=== PATIENT | female | born 1975 | race Caucasian/White ===

== ENCOUNTER 2017-05-24 09:31 | Emergency (ER) | payer MEDICAID ==
[2017-05-24 09:46] VITALS: TEMP 99.1
--- NOTE | 2017-05-24 10:11 | ED PDOC ---
Arrival/HPI - General Chief Complaint: Flu-like Symptoms Time Seen by Provider: 05/24/17 09:54 Historian: Patient - History of Present Illness Narrative History of Present Illness (Text): 05/24/17 10:11 Javad Mar is a 42 year old male, who has no significant past medical history, who presents to the emergency department complaining of chest pain upon coughing for 2 days. Patient is experiencing associated headaches and sore throat. Patient denies any fever, chills, vomiting, diarrhea, back pain, neck pain, dizziness or any other complaints. Patient notes she has been evaluated by her primary medical physician for constipation lasting several weeks. Time/Duration: < week (2 days) Symptom Onset: Gradual Symptom Course: Unchanged Activities at Onset: Light Context: Home Past Medical History - Provider Review Nursing Documentation Reviewed: Yes - Infectious Disease Hx of Infectious Diseases: None - Psychiatric Hx Substance Use: No - Anesthesia Hx Anesthesia: No Family/Social History - Physician Review Nursing Documentation Reviewed: Yes Family/Social History: Unknown Family HX Smoking Status: Unknown If Ever Smoked Hx Alcohol Use: No Hx Substance Use: No Allergies/Home Meds Allergies/Adverse Reactions: Allergies No Known Allergies Allergy (Verified 05/24/17 09:46) Review of Systems - Physician Review All systems were reviewed & negative as marked: Yes - Review of Systems Constitutional: Normal Eyes: Normal ENT: Sore Throat Respiratory: Cough. absent: SOB Cardiovascular: Chest Pain. absent: Palpitations Gastrointestinal: Constipation Genitourinary Female: Normal. absent: Dysuria, Frequency, Hematuria, Urine Output Changes Musculoskeletal: Normal. absent: Back Pain, Neck Pain Skin: Normal. absent: Rash Neurological: Headache Endocrine: Normal Hemo/Lymphatic: Normal Psychiatric: Normal Physical Exam - Physical Exam Narrative Physical Exam (Text): 05/24/17 10:18 Head: Atraumatic. Normocephalic. Eyes: PERRL. EOMI. Conjunctivae are not pale. ENT: Mucous membranes are moist and intact. Oropharynx is clear and symmetric. Neck: Supple. Full ROM. No JVD. No lymphadenopathy. Cardiovascular: Regular rate. Regular rhythm. No murmurs, rubs, or gallops. Distal pulses are 2+ and symmetric. Pulmonary/Chest: Mildly palpable tenderness upon palpation of the interior chest wall. Abdominal: Soft and non-distended. There is no tenderness. No rebound, guarding, or rigidity. No organomegaly. Good bowel sounds. Back: No CVA tenderness. Extremities: No edema. No cyanosis. No clubbing. Full range of motion in all extremities. No calf tenderness. Skin: Skin is warm and dry. No petechiae. No purpura. Neurological: Alert, awake, and oriented to person, place, time, and situation. Normal speech. Psychiatric: Good eye contact. Normal interaction, affect, and behavior. Vital Signs Reviewed: Yes Vital Signs Temp Pulse Resp BP Pulse Ox 05/24/17 14:50 75 18 105/68 99 05/24/17 09:39 99.1 F 98 H 20 102/55 L 98 Temperature: Afebrile Blood Pressure: Normal Pulse: Regular Respiratory Rate: Normal Appearance: Positive for: Well-Appearing, Non-Toxic, Comfortable Pain Distress: None Mental Status: Positive for: Alert and Oriented X 3 Medical Decision Making ED Course and Treatment: 05/24/17 10:19 Impression: 42 year old female presents to the emergency department complaining of chest pain upon coughing. Differential Diagnosis included but are not limited to: Bronchitis vs. Pneumonia vs. Influenza Plan: -- Chest X-ray -- Motrin -- Influenza A B Stat -- Reassess and disposition Progress Notes: Lungs clear. No fever. No headache. No vomiting or diarrhea. Chest pain is with coughing and palpable. No wheezing noted. Given persistent cough, cxr ordered. 05/24/17 12:43 Chest X-ray reviewed, shows: FINDINGS: LUNGS: No active pulmonary disease. PLEURA: No significant pleural effusion identified. No pneumothorax apparent. CARDIOVASCULAR: Normal. OSSEOUS STRUCTURES: Minimal chronic appearing anterior wedging of mid thoracic segment with minimal multilevel degenerative spondylosis. VISUALIZED UPPER ABDOMEN: Normal. OTHER FINDINGS: None. IMPRESSION: No active disease. Influenza positive. She is afebrile, not tachycardic, not hypotensive. Not septic in ED. NO headache or neck pain. Tolerating po. Patient prescribed tamiflu, instructions given for close follow-up. - Lab Interpretations Lab Results: Lab Results 05/24/17 10:40: Influenza Typ A,B (EIA) Pos for influenza b H - RAD Interpretation Radiology Orders: 05/24/17 10:04 CHEST TWO VIEWS (PA/LAT) [RAD] Stat - Medication Orders Current Medication Orders: Discontinued Medications Ibuprofen (Motrin Tab) 400 mg PO ONCE STA Stop: 05/24/17 10:06 Last Admin: 05/24/17 10:39 Dose: 400 mg MAR Pain/Vitals Document 05/24/17 10:39 REUBEN (Rec: 05/24/17 10:39 REUBEN [facility] [id number]) Pain Reassessment Is This A Pain ReAssessment? No Sleep Is patient sleeping during reassessment? No Presence of Pain Presence of Pain Yes - Scribe Statement The provider has reviewed the documentation as recorded by the Scribnilam Quevedo All medical record entries made by the Glenibnilam were at my direction and personally dictated by me. I have reviewed the chart and agree that the record accurately reflects my personal performance of the history, physical exam, medical decision making, and the department course for this patient. I have also personally directed, reviewed, and agree with the discharge instructions and disposition. Disposition/Present on Arrival - Present on Arrival History of DVT/PE: No History of Uncontrolled Diabetes: No Urinary Catheter: No History of Decub. Ulcer: No History Surgical Site Infection Following: CABG - Mediastinitis, None - Disposition Diagnosis: Influenza, Constipation Disposition: HOME/ ROUTINE Condition: GOOD Discharge Instructions (ExitCare): Constipation, Adult (DC), Flu, Adult (DC) Print Language: LAO Additional Instructions: For any fevers, chest pain, shortness of breath, rash, abdominal pain, nausea or vomiting, dizziness, headaches, persistent or worsening of any symptoms, get rechecked. Follow-up with your physician in 1-2 days. Prescriptions: Polyethylene Glycol 3350 [Miralax] 17 gm PO DAILY #7 ml Oseltamivir Phosphate [Tamiflu] 75 mg PO BID #10 capsule Referrals: Alyssa Chavez DO [Family Provider] - Follow up with primary Forms: [employer] ([place])
--- NOTE | 2017-05-24 12:07 | RAD ---
HISTORY: Cough COMPARISON: No prior. TECHNIQUE: Chest PA and lateral FINDINGS: LUNGS: No active pulmonary disease. PLEURA: No significant pleural effusion identified. No pneumothorax apparent. CARDIOVASCULAR: Normal. OSSEOUS STRUCTURES: Minimal chronic appearing anterior wedging of mid thoracic segment with minimal multilevel degenerative spondylosis. VISUALIZED UPPER ABDOMEN: Normal. OTHER FINDINGS: None. IMPRESSION: No active disease.
[2017-05-24 14:50] VITALS: BP 105/68; PULSE 75; RESP 18; O2SAT 99
--- NOTE | 2017-05-25 09:42 | CARD ---
APPROVED REPORT EKG Measurement Heart [id number] <Conclusion> Normal sinus rhythm Normal ECG
== END 2017-05-24 12:50 | disposition home or self-care (01) ==
LOC: ED 09:31
DX: J11.1 Influenza due to unidentified influenza virus with other respiratory manifestations (principal); K59.00 Constipation, unspecified